=== PATIENT | male | born 1980 | race Caucasian/White ===

== ENCOUNTER 2017-10-11 01:22 | Emergency (ER) | payer SELFPAY ==
[~2017-10-11] VITALS: Ht 167.6 cm; Wt 78.0 kg
[2017-10-11] MEDS ORDERED: FAMOTIDINE 20MG/2ML VIAL IV STA (06:54)
[2017-10-11] MEDS ORDERED: ONDANSETRON HCL 4MG/2ML VIAL IV STA (06:54)
[2017-10-11] MEDS ORDERED: SODIUM CHLORIDE 0.9% 1,000 ML IV ONE (06:54)
[2017-10-11] MEDS ORDERED: MORPHINE SULFATE 4 MG/ML CPJ (NOT FOR IM USE) IV STA (06:54)
[2017-10-11] MEDS ORDERED: ASPIRIN 81MG TABLET PO ONE (07:15)
[2017-10-11 07:22] LABS: BASOPHILS % 0.6 % (0.0-2.0); HEMATOCRIT. 41.1 % (42.0-52.0); HEMOGLOBIN. 14.2 g/dL (14.0-18.0); LYMPHOCYTES % 33.4 % (20.0-50.0); MEAN CORPUSCULAR VOLUME 89.5 fL (80.0-94.0); MEAN PLATELET VOLUME 10.3 fl (7.4-10.4); MONOCYTES % 7.3 % (2.0-8.0); NEUTROPHILS % 57.7 % (40.0-76.0); PLATELET 154 x1000/uL (130-400); RED BLOOD CELL COUNT 4.59 mill/uL (4.7-6.1); RED CELL DISTRIBUTION WIDTH 13.3 % (11.6-14.6)
[2017-10-11 07:32] LABS: CHLORIDE 106 mEq/L (98-107)
[2017-10-11 07:37] LABS: INR 1.1; PARTIAL THROMBOPLASTIN TIME 25.1 sec (23.4-31.0); PROTHROMBIN TIME 11.1 sec (9.4-11.6)
[2017-10-11 07:38] LABS: CREATINE KINASE 143 IU/L (39-308); CREATINE KINASE MB FRACTION 0.8 ng/mL (0.5-3.6)
[2017-10-11 09:36] LABS: CLARITY URINE CLEAR (CLEAR); COLOR URINE YELLOW (YELLOW); KETONES URINE NEGATIVE (NEGATIVE); LEUKOCYTE ESTERASE URINE NEGATIVE (NEGATIVE); NITRITE URINE NEGATIVE (NEGATIVE); OCCULT BLOOD URINE NEGATIVE (NEGATIVE); PROTEIN URINE NEGATIVE (NEGATIVE); SPECIFIC GRAVITY URINE 1.011 (1.005-1.030); UROBILINOGEN URINE 0.2 E.U./dL (0.2-1.0)
[2017-10-11 09:49] LABS: *AMPHETAMINES SCREEN URINE NEGATIVE (NEGATIVE); *BARBITURATES SCREEN URINE NEGATIVE (NEGATIVE); *BENZODIAZEPINES SCREEN URINE NEGATIVE (NEGATIVE); *COCAINE SCREEN URINE NEGATIVE (NEGATIVE); CANNABINOID URINE SCREEN NEGATIVE (NEGATIVE); METHADONE URINE SCREEN NEGATIVE (NEGATIVE); OPIATES URINE SCREEN PRESUMTIVE POSITIVE (NEGATIVE); PHENCYCLIDINE URINE SCREEN NEGATIVE (NEGATIVE)
[2017-10-11] MEDS ORDERED: IPRATROPIUM/ALBUTEROL 0.5-3(2.5)MG/3ML NEB INH PRN ×2 (10:30→11:15)
[2017-10-11] MEDS ORDERED: KETOROLAC 15MG/ML VIAL IV PRN ×2 (10:30→11:15)
[2017-10-11] MEDS ORDERED: ACETAMINOPHEN 325MG TABLET PO PRN ×2 (10:30→11:15)
[2017-10-11] MEDS ORDERED: DIPHENHYDRAMINE 50MG/ML VIAL IV PRN ×2 (10:30→11:15)
[2017-10-11] MEDS ORDERED: MAGNESIUM/ALUMINUM HYDROXIDE/SIMETHICONE 30ML UDC PO PRN ×2 (10:30→11:15)
[2017-10-11] MEDS ORDERED: LORAZEPAM 0.5MG TABLET PO PRN ×2 (10:30→11:15)
[2017-10-11] MEDS ORDERED: DOCUSATE SODIUM 100MG CAPSULE PO PRN ×2 (10:30→11:15)
[2017-10-11] MEDS ORDERED: CLONIDINE 0.1MG TABLET PO PRN ×2 (10:30→11:15)
[2017-10-11] MEDS ORDERED: ONDANSETRON HCL 4MG/2ML VIAL IV PRN ×2 (10:30→11:15)
[2017-10-11] MEDS ORDERED: ZOLPIDEM TARTRATE 5MG TABLET PO PRN ×2 (10:30→11:15)
[2017-10-11] MEDS ORDERED: NA PHOS,M-B/NA PHOS,DI-BA ENEMA 118ML PR PRN ×2 (10:30→11:15)
[2017-10-11] MEDS ORDERED: GUAIFENESIN 200MG/10ML SUGAR FREE UDC PO PRN ×2 (10:30→11:15)
[2017-10-11 11:08] VITALS: BP 120/71
[2017-10-11] MEDS ORDERED: SUCRALFATE 1 G/10 ML UDC PO SCH ×2 (13:00→13:15)
[2017-10-11] MEDS ORDERED: FAMOTIDINE 20MG/2ML VIAL IV SCH ×2 (21:00→21:15)
[2017-10-12] MEDS ORDERED: ASPIRIN 325MG EC TABLET PO SCH ×2 (09:00)
== END 2017-10-11 11:12 | disposition left against medical advice (07) ==
LOC: ER 03:48 → EDBEDREQTM 07:45 → EDBEDREQ 07:45 → ER 11:12 → CANBEDREQ 14:00
DX: R07.9 Chest pain, unspecified (principal); R10.13 Epigastric pain; R42 Dizziness and giddiness; Z79.82 Long term (current) use of aspirin
CPT/HCPCS: 36415; 74022; 76705; 80053; 80305; 81003; 82550; 82553; 83036; 83690; 84484; 85025; 85610; 85730; 93005; 96361; 96374; 96375; 99285; J2270; J2405; J3490; J7030; Z7610

== ENCOUNTER 2017-12-08 22:03 | Emergency (ER) | payer SELFPAY ==
[~2017-12-08] VITALS: Ht 170.2 cm; Wt 78.0 kg
[2017-12-08] MEDS ORDERED: VISCOUS LIDOCAINE 2% 15 ML UDC MM STA (23:45)
[2017-12-08] MEDS ORDERED: MAGNESIUM/ALUMINUM HYDROXIDE/SIMETHICONE 30ML UDC PO ONE (23:45)
[2017-12-09 00:26] VITALS: BP 118/75
== END 2017-12-09 10:34 | disposition home or self-care (01) ==
LOC: ER 12-09 01:34
DX: K21.9 Gastro-esophageal reflux disease without esophagitis (principal); R00.1 Bradycardia, unspecified
CPT/HCPCS: 93005; 99283